=== PATIENT | female | born 1970 | race Caucasian/White ===

== ENCOUNTER 2017-10-20 05:18 | Emergency (ER) | payer MEDICAID ==
[~2017-10-20] VITALS: Ht 175.3 cm; Wt 70.0 kg
[~2017-10-20 05:18] MED LIST: LITH300C PO; RISP3TAB PO; TRAZ150T62 PO
[2017-10-20 05:56] LABS: CULTURE INDICATED? YES; MICROSCOPIC INDICATED
[2017-10-20 06:34] LABS: BASOPHILS # (AUTO) 0.03 x10^3/uL (0-0.1); BASOPHILS % (AUTO) 1 % (0-1); EOSINOPHILS # (AUTO) 0.08 x10^3/uL (0-0.4); EOSINOPHILS % (AUTO) 2 % (1-7); LYMPHOCYTES # (AUTO) 1.02 x10^3/uL (1-3.4); LYMPHOCYTES % (AUTO) 25 % (22-44); MD NO; MEAN CORPUSCULAR HEMOGLOBIN 30.2 pg (27.0-34.8); MEAN CORPUSCULAR HGB CONC 33.2 g/dL (32.4-35.8); MEAN PLATELET VOLUME 8.6 fL (7.4-10.4); MONOCYTES # (AUTO) 0.75 x10^3/uL (0.2-0.8); MONOCYTES % (AUTO) 18 % (2-9); NEUTROPHILS # (AUTO) 2.27 x10^3/uL (1.8-6.8); NEUTROPHILS % (AUTO) 55 % (42-75); PLATELET COUNT 236 x10^3/uL (130-400); RED BLOOD COUNT 4.26 x10^6/uL (3.82-5.3); RED CELL DISTRIBUTION WIDTH 13.5 % (9.6-15.2)
[2017-10-20 06:35] LABS: ALBUMIN 3.2 g/dL (3.4-5.0); ANION GAP 6 mmol/L (5-15); CHLORIDE 106 mmol/L (98-107); CREATININE 0.83 mg/dL (0.55-1.02)
[2017-10-20 07:26] VITALS: BP 124/76
== END 2017-10-20 07:28 | disposition home or self-care (01) ==
LOC: ED 05:51
DX: N30.90 Cystitis, unspecified without hematuria (principal); F31.9 Bipolar disorder, unspecified
CPT/HCPCS: 36415; 71046; 80048; 80178; 81001; 82040; 85025; 87081; 87086; 87880; 99285

== ENCOUNTER 2018-12-06 14:26 | Emergency (ER) | payer MEDICAID, OTHER ==
[~2018-12-06] VITALS: Ht 175.3 cm; Wt 65.4 kg
[2018-12-06 14:35] VITALS: BP 95/58
[2018-12-06] MEDS ORDERED: CARBAMIDE PEROXIDE EAR DROPS 6.5%, 15ML LEFT EAR ONE (15:00)
[2018-12-06] MEDS ORDERED: CARBAMIDE PEROXIDE EAR DROPS 6.5%, 15ML RIGHT EAR ONE (15:00)
[2018-12-06] MEDS ORDERED: CARBAMIDE PEROXIDE EAR DROPS 6.5%, 15ML ONE (15:03)
== END 2018-12-06 15:58 | disposition home or self-care (01) ==
LOC: ED 15:48
DX: H61.23 Impacted cerumen, bilateral (principal); F31.9 Bipolar disorder, unspecified; F17.200 Nicotine dependence, unspecified, uncomplicated; Z72.9 Problem related to lifestyle, unspecified
CPT/HCPCS: 69209; 99282

== ENCOUNTER 2019-12-03 16:04 | Emergency (ER) | payer SELFPAY ==
[~2019-12-03] VITALS: Ht 175.3 cm; Wt 69.0 kg
[2019-12-03 16:06] VITALS: BP 115/79
--- NOTE | 2019-12-03 16:15 | NUR ---
ALBA GREENBERG IN TRIAGE TO EVALUATE PT. PT TO BE DISCHARGED PER ALBA GREENBERG FROM TRIAGE.
== END 2019-12-03 16:28 | disposition home or self-care (01) ==
LOC: ED 16:05
DX: K08.89 Other specified disorders of teeth and supporting structures (principal)
CPT/HCPCS: 99283

== ENCOUNTER 2020-01-07 07:16 | Emergency (ER) | payer MEDICAID ==
[~2020-01-07] VITALS: Ht 175.3 cm; Wt 63.5 kg
[2020-01-07 07:18] VITALS: BP 125/71
[2020-01-07] MEDS ORDERED: LORazepam 1MG TABLET ONE (07:54)
--- NOTE | 2020-01-07 07:58 | NUR ---
PT MEDICATED PER EMAR. PT TOLERATED WELL.
[2020-01-07] MEDS ORDERED: LORazepam 1MG TABLET PO ONE (08:00)
--- NOTE | 2020-01-07 08:03 | NUR ---
Patient given discharge instructions and they have confirmed that they understand the instructions. Patient ambulatory with steady gait.
== END 2020-01-07 08:04 | disposition home or self-care (01) ==
LOC: ED 07:51
DX: F41.1 Generalized anxiety disorder (principal); Z76.0 Encounter for issue of repeat prescription; F17.210 Nicotine dependence, cigarettes, uncomplicated; F31.9 Bipolar disorder, unspecified
CPT/HCPCS: 99283

== ENCOUNTER 2020-01-17 20:42 | Emergency (ER) | payer MEDICAID ==
[~2020-01-17] VITALS: Ht 175.3 cm; Wt 63.7 kg
--- NOTE | 2020-01-17 20:48 | NUR ---
PT IN RESTROOM AT THIS TIME
[2020-01-17 20:49] VITALS: BP 142/93
--- NOTE | 2020-01-17 21:10 | NUR ---
THIS IS A 49 YO F W/ C/O "BOWEL PAIN" THAT STARTED TODAY. LAST BM 2 DAYS AGO, PT REPORTS IT WAS NORMAL. PT REPORTS USING METH YESTERDAY. DENIES ABD PAIN/N/V. PT RESTING ON GURNEY W/ CALL LIGHT IN REACH, SIDE RAILS UPX2. PT HYPERTENISVE, OTHER VS WDL. AWAITING ED EVAL.
[2020-01-17] MEDS ORDERED: LORazepam 2 MG/ML, 1ML ONE (21:29)
[2020-01-17] MEDS ORDERED: LORazepam 2 MG/ML, 1ML IVPush ONE (21:30)
[2020-01-17] MEDS ORDERED: FENTANYL PF 100 MCG/2ML ONE (21:44)
--- NOTE | 2020-01-17 21:51 | NUR ---
PT HAD LARGE FORMED BM IN BED. DR. GUPTA NOTIFIED.
[2020-01-17] MEDS ORDERED: FENTANYL PF 100 MCG/2ML IVPush ONE (22:00)
== END 2020-01-17 22:43 | disposition home or self-care (01) ==
LOC: ED 21:18
DX: K59.00 Constipation, unspecified (principal); K62.89 Other specified diseases of anus and rectum; F17.200 Nicotine dependence, unspecified, uncomplicated
CPT/HCPCS: 96374; 99283; J2060

== ENCOUNTER 2020-04-28 18:27 | Emergency (ER) | payer MEDICAID ==
[~2020-04-28] VITALS: Ht 175.3 cm; Wt 69.0 kg
[2020-04-28 18:31] VITALS: BP 91/57
--- NOTE | 2020-04-28 19:36 | NUR ---
[employer]: PT TO ROOM FROM LOBBY
--- NOTE | 2020-04-28 19:37 | NUR ---
PT NOT IN LOBBY WHEN CALLED FOR TRIAGE
--- NOTE | 2020-04-28 19:42 | NUR ---
PT CALLED TO BE ROOMED, NO ANSWER
--- NOTE | 2020-04-28 19:58 | NUR ---
PT STILL NOT IN LOBBY WHEN CALLED
== END 2020-04-28 20:00 | disposition left against medical advice (07) ==
LOC: ED 19:30
DX: T24.101A Burn of first degree of unspecified site of right lower limb, except ankle and foot, initial encounter (principal); Z53.21 Procedure and treatment not carried out due to patient leaving prior to being seen by health care provider